=== PATIENT | female | born 1940 | race Caucasian/White ===

== ENCOUNTER 2023-04-29 07:07 | Emergency (ER) | payer MEDICARE ==
[2023-04-29] MEDS ORDERED: Lidocaine 1% (PF) 30 ML VIAL ONE (07:16)
[2023-04-29] MEDS ORDERED: Bacitracin 1 PK ONE (07:41)
[2023-04-29] MEDS ORDERED: TETANUS, DIPHTHERIA TOX,ADULT (TDVAX) 0.5 ML VIAL IM ONE (07:54)
== END 2023-04-29 08:02 | disposition home or self-care (01) ==
LOC: CSHERS 07:07
DX: S61.215A Laceration without foreign body of left ring finger without damage to nail, initial encounter (principal); I10 Essential (primary) hypertension; Z23 Encounter for immunization; W26.0XXA Contact with knife, initial encounter
CPT/HCPCS: 12001; 90471; 90714; J2001